=== PATIENT | male | born 1955 | race Caucasian/White ===

== ENCOUNTER 2019-02-26 05:31 | Day surgery (SDC) | payer BC, OTHER ==
[~2019-02-26] VITALS: Ht 170.2 cm; Wt 67.1 kg
[~2019-02-26 05:31] MED LIST: ACCUNEB SO1.25 MG/1 INH; ARNUITY ELLIP100 MCG INH; CALCIUM 500 +1 EAC5 PO; CRESTOR10 MG PO; FLOMAX0.4 MG PO; PROTONIX40 M1 PO; QUINAPRIL HCL40 MG PO
[2019-02-26 08:18] VITALS: BP 139/75
[2019-02-26] MEDS ORDERED: PROMS25 WY RECTAL (15:59)
[2019-02-26] MEDS ORDERED: NORCO 7.5-3251 EACH PO (16:00)
[2019-02-26] MEDS ORDERED: ONDANSETRON HCL4 M1 IV PUSH (16:01)
[2019-02-26] MEDS ORDERED: TUMS PO (16:01)
[2019-02-26] MEDS ORDERED: CALCITRIOL0.25 MCG PO (16:02)
[2019-02-26 16:30] LABS: ALBUMIN 3.7 g/dL (3.4-5.0); MAGNESIUM 1.7 mg/dL (1.8-2.4)
[2019-02-26 17:20] VITALS: BP 154/81
--- NOTE | 2019-02-26 17:56 | NUR ---
PT ARRIVED TO ROOM FROM PACU IN STABLE CONDITION AT 17:11. ASSESSMENT COMPLETED. PT DROWSY, BUT AROUSABLE. A&O,X4. C/O NECK AND THROAT PAIN S/P PARATHYROIDECTOMY, PAIN MEDS GIVEN ORDERED. NECK INCISION WITH STERISTRIPS AND TEGADERM, SMALL AMOUNT OF SEROUSANGIOUS DRAINAGE NOTED. MONA DRAIN IN PLACE. ROOM AIR. SKIN INTACT. NO EDEMA. PT WALKED TO THE BATHROOM AND VOIDED, NO PROBLEMS VOIDING SOME WEAKNESS NOTED. PT ONEIDA AND WEARS HEARING AIDS, IN PLACE. WILL CONTINUE TO MONITOR UNTIL EOS.
[2019-02-26 19:30] VITALS: BP 144/74
[2019-02-26 21:30] VITALS: BP 139/75
[2019-02-26 22:30] VITALS: BP 160/95
[2019-02-26 23:30] VITALS: BP 131/69
[2019-02-27 03:50] VITALS: BP 125/69
--- NOTE | 2019-02-27 04:10 | NUR ---
PATIENT IS ALERT AND ORIENTED. PATIENT IS UP AD STEVE. PATIENT HAS BILATERAL HEARING AIDS. PATIENT HAS SCDS. PATIENTS LBM WAS THE 25TH. PATIENTS CALCIUM HAS BEEN STABLE. POST OP VITALS STABLE. NO PAIN. PATIENTS MONA DRAIN IS INTACT. PENDING DISCHARGE TODAY. PATIENT IS RESTING COMFORTABLY IN BED. WCM. PATIENT IS PROGRESSING TO GOALS.
[2019-02-27 07:30] VITALS: BP 137/69
[2019-02-27 11:02] VITALS: BP 131/69
--- NOTE | 2019-02-27 12:32 | NUR ---
ASSUMED CARE OF PT AT 0700. ASSESSMENT COMPLETED. A&O,X4. DENIES PAIN, DOES NOT REQUEST ANY PAIN MEDS. PT TOOK AM MEDS FROM HOME. NO CALCIUM TO BE GIVEN DUE TO ELEVATED CALCIUM LEVELS. INCISION WITH STERI STRIPS INTACT, NO NEW SEROUSANGIOUS DRAINAGE. MONA DRAIN REMOVED, 10 ML OUTPUT NOTED. GAUZE AND TEGADERM DRESSING C/D/I. PT TO FOLLOW UP WITH DR. GONG FOR CA LEVELS TO BE MONITORED. NEW DISCHARGE ORDERS. SCRIPTS GIVEN TO SISTER IN POSTOP. IV REMOVED, NO ACTIVE BLEEDING. PT DRESSED IN PERSONAL CLOTHES, BELONGINGS AND HOME MEDS SENT WITH PT. PT LEFT IN STABLE CONDITION VIA WHEELCHAIR AT 12:30.
--- NOTE | 2019-03-02 15:06 | PATH ---
[facility] [place] [address] PATHOLOGY RPT PROCEDURE Name: BRIDGER REYNAGA Room #: DEP [facility]..#: [id number] ������������������ Admission: 02/26/19 ������������������ Date of : 59 Discharge: 02/27/19 Report #: [id number] Path Case #: [id number] L[facility] Accession Number: [id number] . 01 Material submitted: . PART A: parathyroid gland - LEFT INFERIOR PARATHYROID RULE OUT PARATHYROID - FS. Modifiers: left, inferior PART B: parathyroid gland - LEFT SUPERIOR PARATHYROID RULE OUT PARATHYROID - FS. Modifiers: left, superior PART C: parathyroid gland - LEFT INFERIOR PARATHYROID #2 RULE OUT PARATHYROID - FS. Modifiers: left, inferior, 2 PART D: parathyroid gland - RIGHT SUPERIOR PARATHYROID RULE OUT PARATHYROID - FS. Modifiers: right, superior PART E: parathyroid gland - LEVEL 6 DISSECTION PARATHYROID . 01 Clinician provided ICD-10: n . 01 Clinical history: . Hyperparathyroidism. . 02 Frozen section diagnosis: . FROZEN SECTION GROSS DESCRIPTION: . A. Received fresh, labeled, "Bridger Reynaga - Left inferior parathyroid rule out parathyroid", is a johnson piece of tissue measuring 0.5 x 0.4 x 0.3 cm. It is sectioned, inked, frozen and submitted in cassette A1. . B. Received fresh, labeled, "Bridger Reynaga - Left superior parathyroid, rule out parathyroid", is a johnson piece of tissue measuring 0.4 x 0.3 x 0.2 cm. It is frozen and submitted in cassette B1. . C. Received fresh, labeled, "Bridger Reynaga - Left inferior parathyroid, rule out parathyroid #2", are two tiny fragments of tissue, one measuring 0.3 and one measuring 0.2 cm. All frozen and submitted in cassette C1. . D. Received fresh, labeled, "Bridger Reynaga - Right superior parathyroid, rule out parathyroid" are two tiny fragments of johnson tissue, one measuring 0.1 cm and the other measuring 0.3 cm. They are both frozen and submitted in cassette D1. (SHA:mm; 02/26/2019) . . INTRAOPERATIVE CONSULTATION WITH FROZEN SECTION: (Dr. Amador Cunningham) . FSA1. Thyroid, "left inferior parathyroid rule out parathyroid": - Thyroid tissue present. . [address] [address] PATHOLOGY RPT PROCEDURE Name: BRIDGER REYNAGA Room #: DEP [facility].#: [id number] ������������������ Admission: 02/26/19 ������������������ Date of : 59 Discharge: 02/27/19 Report #: [id number] Path Case #: [id number] FSB1. Parathyroid, "left superior parathyroid, rule out parathyroid": - Cellular parathyroid tissue present. . FSC1. Left inferior parathyroid, rule out parathyroid #2: - Thyroid tissue present. . FSD1. Parathyroid, "right superior parathyroid": - Parathyroid tissue present. . These findings were discussed with Dr. Desir and a written report was placed in the patient's chart. (SHA:mm; 02/26/2019) . . Frozen section performed at [facility], [address] [place] [address] , [place] [address]. ZSA/QLM . 02 Diagnosis: A. Tissue designated as "left inferior parathyroid rule out parathyroid, excision": - Thyroid parenchyma with moderate chronic lymphocytic thyroiditis. . B. Parathyroid, left superior parathyroid rule out parathyroid, excision: - Markedly hypercellular parathyroid tissue present. . C. Tissue designated as "left inferior parathyroid #2, rule out parathyroid, excision": - Thyroid parenchyma with moderate chronic lymphocytic thyroiditis. . D. Parathyroid, right superior parathyroid rule out parathyroid, excision: - Markedly hypercellular parathyroid tissue present. . E. Lymph nodes (5), level 6 dissection parathyroid, excision: - Reactive minute lymph nodes. - Fibroadipose tissue with reactive changes. - No parathyroid tissue present. . (IUV:detective investigator; 03/01/2019) MBR/03/01/2019 . 02 Electronically signed: . Gladys Avila MD, Pathologist NPI- [id number] . [address] [address] PATHOLOGY RPT PROCEDURE Name: BRIDGER REYNAGA Room #: DEP [facility] Yessi#: [id number] ������������������ Admission: 02/26/19 ������������������ Date of : 59 Discharge: 02/27/19 Report #: [id number] Path Case #: [id number] Gross description: . A. Specimen is received fresh labelled "Ronnell, Bridger and left inferior parathyroid" is a johnson piece of tissue measuring 0.5 x 0.4 x 0.3 cm. The frozen section remnant is submitted in entirety for permanent sections in A1. . B. Specimen B is received fresh labelled "Ronnell, Bridger and left superior parathyroid rule out parathyroid" is a johnson peice of tissue measuring 0.4 x 0.3 x 0.2 cm. The frozen section remnant is submitted in entirety for permanent sections in B1. . C. Specimen C is received fresh labelled "Ronnell, Bridger and left inferior parathyroid, rule out parathyroid #2" are two tiny fragments measuring 0.3 and 0.2 cm. The frozen section remnant is submitted in entirety for permanent sections in C1. . D. Specimen D is received fresh labelled "Ronnell, Bridger and right superior parathyroid rule out parathyroid" are two tiny fragments of tissue measuring 0.1 and 0.2 cm. The frozen section remnant is submitted in entirety for permanent sections in D1. . E. Received in formalin labeled "Bridger Reynaga, level six dissection" is a 4.6 x 2.5 x 0.4 cm aggregate of yellow-johnson lobulated fibroadipose tissue. The specimen is palpated and no lymph nodes are grossly identified. The fibroadipose tissue is submitted entirely in cassettes E1-E2. ([facility]; 02/26/2019) SYC/SYC . 02 Pathologist provided ICD-10: E06.3, E21.0, R59.9 . 02 CPT . 233829, 102371, 768940, 360297, 675743, 512054, 226938, 868745, 081612 Specimen Comment: A courtesy copy of this report has been sent to Specimen Comment: [phone]. Specimen Comment: Report sent to Performed at: [address], [place], [place] [id number] MD Isaiah Telles MD Phone: [phone] Performed at: [address] [id number] MD Gladys Avila MD Phone: [phone]
--- NOTE | 2019-03-02 19:48 | HC ---
[place] [address] CONSULTATION Name: ROSA DIAZ Room #: DEP [facility] Yessi#: [id number] Admission: 02/26/19 ������������������ Attend Phys: Anjel Desir MD Discharge: 02/27/19 ������������������ Date of : 59 Report #: [id number] THIS REPORT FOR: //name// CC: [facility] physician/PCP Anjel Desir DATE OF SERVICE: 02/27/2019 REASON FOR CONSULTATION: Hypercalcemia, post-thyroidectomy. HISTORY OF PRESENT ILLNESS: A 63-year-old with past medical history of hyperparathyroidism, discovered during workup for hypercalcemia. He is known to have recurrent stones. He is known to have hypertension and hyperlipidemia, is maintained on Crestor and quinapril. He has left-sided partial nephrectomy for renal cell carcinoma. Localization of the ultrasound with sestamibi did not reveal any parathyroid adenomas. Decision was made to proceed with parathyroidectomy. PTH is down from 93.8-6.1. Calcium level is maintained at 10.2. I am being consulted to manage his calcium and magnesium issues. MEDICATIONS: 1. Quinapril. 2. Crestor. 3. Albuterol. 4. Hydrocodone. 5. Flomax. PAST MEDICAL HISTORY: 1. Recurrent kidney stones. 2. Hypertension. 3. Hyperlipidemia. 4. Hyperparathyroidism. 5. Renal cell carcinoma. SOCIAL HISTORY: He denies drug or alcohol abuse. FAMILY HISTORY: He denies hypercalcemia or stones issues or parathyroid issues. REVIEW OF SYSTEMS: GENERAL: No fever or chills. CARDIOVASCULAR: No chest pain or palpitation. PULMONARY: No cough or hemoptysis. GASTROINTESTINAL: No nausea or vomiting. GENITOURINARY: No frequency, no urgency. SKIN AND MUSCULOSKELETAL: As per the history of present illness. Minor discomfort at the incision site. [facility] [address] [place] [address] CONSULTATION Name: ROSA DIAZ Room #: DEP [facility] Regina.#: [id number] Admission: 02/26/19 ������������������ Attend Phys: Anjel Desir MD Discharge: 02/27/19 ������������������ Date of : 59 Report #: [id number] PHYSICAL EXAMINATION: GENERAL: Alert, oriented, in no apparent distress. VITAL SIGNS: Temperature 36.7, pulse rate 57, respiratory rate 16, blood pressure is 125/69. HEAD AND NECK: No jugular venous distention. Incision, with drains in place. CARDIOVASCULAR: No rub detected. CHEST: Clear. ABDOMEN: Soft, nontender. LOWER EXTREMITIES: No edema. LABORATORY DATA: Laboratory values reviewed. Calcium is 10.2. PTH is down to 6.1, magnesium is 1.7. ASSESSMENT, IMPRESSION AND PLAN: 1. Post-parathyroidectomy. 2. Known recurrent nephrolithiasis. 3. Known renal cell carcinoma. 4. As for now, we will keep off the calcium and magnesium supplement. We will keep off vitamin D. I provided the patient with my clinic phone number and we will check labs on him within the next week or so. He is okay to go home. ��������������������������������������������� <ELECTRONICALLY SIGNED> ���������������������������������������� By: Octavio Umaña MD ��������������������������������������������� 03/02/19 1948 0949 0015 Octavio Umaña MD /nt
--- NOTE | 2019-03-05 16:04 | O ---
[facility] [place] [address] OPERATIVE REPORT Name: ROSA DIAZ Room #: DEP [facility] M.R.#: [id number] Admission: 02/26/19 ������������������ Attend Phys: Anjel Desir MD Discharge: 02/27/19 ������������������ Date of : 59 Report #: [id number] THIS REPORT FOR: //name// CC: [facility] physician/PCP Gabriel Desir DATE OF SERVICE: 02/26/2019 SURGEON: Anjel Desir MD PREOPERATIVE DIAGNOSES: 1. Primary hyperparathyroidism. 2. Hypercalcemia. 3. History of renal cell carcinoma. 4. Chronic hoarseness. 5. History of renal cell carcinoma, status post left nephrectomy. POSTOPERATIVE DIAGNOSES: 1. Primary hyperparathyroidism. 2. Hypercalcemia. 3. History of renal cell carcinoma. 4. Chronic hoarseness. 5. History of renal cell carcinoma, status post left nephrectomy. OPERATION PERFORMED: 1. Parathyroidectomy subtotal. 2. Parathyroid autotransplantation right sternocleidomastoid muscle. INDICATIONS: The patient is a 63-year-old male presenting on referral from his wound care center consultant, Dr. Medina for consideration of surgical intervention on suspected primary hyperparathyroid disease. The patient has been followed with an elevated PTH in the high 90s range with a calciums in the 11 range. Examination as well as localizing studies including ultrasound and sestamibi scan did not reveal locality of a parathyroid adenoma. Recommendations were made for exploration and parathyroidectomy. DESCRIPTION OF PROCEDURE: The patient was brought to the operating room and placed supine on the operating table. After adequate general anesthesia was achieved via endotracheal intubation with a nerve integrity monitor endotracheal tube, a shoulder roll was placed and neck was extended. Planned incision was marked out in a relaxed skin tension line above the manubrium and injected with 1% Xylocaine with 1:100,000 epinephrine. As a separate part of the procedure, the needle electrodes were attached to the nerve and integrity monitor. Ground electrodes were put in the soft tissue overlying the sternum and contralateral shoulder. Electrode resistance and impedance was measured and found to be acceptable. Threshold and stimulus [facility] [address] [place] [address] OPERATIVE REPORT Name: JOEROSA Room #: DEP [facility] M.R.#: [id number] Admission: 02/26/19 ������������������ Attend Phys: Anjel Desir MD Discharge: 02/27/19 ������������������ Date of : 59 Report #: [id number] intensity parameters were set and the patient was monitored for the entirety of the case of approximately 2.5 to 3 hours. After prepping and draping, the incision was made in the skin and subcutaneous tissue and platysma. Subplatysmal flaps were elevated superiorly and inferiorly and held in place with Gelpi forceps. Dissection was made in the midline over the strap muscles. These were divided down to the underlying thyroid and retracted laterally. Procedure began with exploration on the patient's left side. Immediately upon retracting the strap muscle and beginning dissection, a large mass measuring almost 2 cm in size, came into view along the inferior thyroid artery. This did have the appearance of a large parathyroid adenoma and this was carefully dissected, afferent and efferent vessels clipped between Ligaclips and divided. This was delivered off the field as specimen to pathology. Dissection then continued for exploration. The thyroid gland was dissected. The middle thyroid vein was taken down between Hemoclips and the gland was rolled up on to the trachea dissecting in the tracheoesophageal groove until the recurrent nerve was identified. This was tracked superiorly to the cricothyroid joint. A probe stimuli confirmed. This was then protected. Attached to the thyroid superiorly, there was another parathyroid gland that appeared just slightly larger than normal. By this time, the pathologist had returned with frozen section stating that the mass returned was consistent with thyroid and not parathyroid. Also at this time of the initial iPTH came back at a little over 100, slightly higher than his preoperative iPTH of 91. For that reason, dissection then continued to the opposite right side beginning inferiorly along the inferior thyroid artery and dissecting superiorly, the superior parathyroid was found attached to the capsule was dissected. It appeared normal in size. An extensive evaluation was done along the tracheoesophageal groove. The recurrent nerve was found and protected, but no obvious adenoma was found. The carotid sheath was then divided and this was examined, in addition retroesophageal and post-cricoid was examined again with no obvious adenoma. Dissection continued along the carotid artery inferiorly down into the upper mediastinum and again no obvious parathyroid. A gamma probe was utilized extensively trying to identify. At this point, it was decided to be proceed with removal of the parathyroids that had been identified beginning on the left side. The superior parathyroid was harvested and confirmed with frozen section as parathyroid, this was slightly larger than normal. A level 6 neck dissection was then done beginning on the left side along the nerve and trying to dissect along the inferior thyroid artery to protect it. The lymph node bearing tissue in this region was removed down to the upper mediastinum and thymus. Again, no obvious parathyroid adenoma was found were confirmed with probe stimuli. Similarly on the right side, this area was dissected. The superior parathyroid on this side was harvested and confirmed with frozen section of only small portion. The remainder was kept insulin in anticipation of autotransplantation. Dissection began with level 6 dissection on this side beginning superior to inferior. This tissue was taken down to the upper mediastinum and thymus as well, again the inferior thyroid artery and vein were preserved. Again, no obvious parathyroid adenoma was found. By then a second iPTH had been returned [facility] [address] [place] [address] OPERATIVE REPORT Name: ROSA DIAZ Room #: DEP [facility].#: [id number] Admission: 02/26/19 ������������������ Attend Phys: Anjel Desir MD Discharge: 02/27/19 ������������������ Date of : 59 Report #: [id number] 18.3 showing that this was adequately removed. My suspicion remains at the original mass that had been removed was parathyroid as it did high enhance with the gamma probe. I asked the pathologist to relook at this, but this had been already fixed. As the iPTH had responded appropriately, the dissection was terminated. The wounds were irrigated, hemostasis assured with clip ligature and bipolar cautery. A 10-Afghan Mitchell drain was placed through a separate stab incision, curled into the wound and connected to bulb suction. Powdered Ivone was placed opposite each cricothyroid joint. Both nerves were stimulated and found to be intact. The strap muscles were closed in the midline with interrupted 3-0 Vicryl. A pocket was then created in the right sternocleidomastoid muscle and the superior parathyroid on the right was minced and then placed into this pocket in a parathyroid autotransplantation. This was marked with 3 Ligaclips for future reference. The platysma was then closed with interrupted 3-0 Vicryl and 4-0 Vicryl deep dermal sutures were placed followed by running a 5-0 subcuticular Prolene. Mastisol and Steri-Strips were applied followed by an Op-Site. The drain was sutured in place with 2-0 silk and connected to bulb suction. The patient was then returned to anesthesia, awake without difficulty, returned to recovery in good condition. Sponge and needle counts were correct. There were no complications. Blood loss was about 20 mL. The patient will be watched overnight. He has been counseled preoperatively that this may require several days in the hospital depending on his calcium needs. ��������������������������������������������� <ELECTRONICALLY SIGNED> ���������������������������������������� By: Anjel Desir MD ��������������������������������������������� 03/05/19 1604 [id number] Anjel Desir MD /nt
== END 2019-02-27 12:40 | disposition home or self-care (01) ==
LOC: OR 05:31 → TBA 05:31 → EDSTATUS 09:06 → NUC 09:19 → EDSTATUS 09:26 → OR 09:36 → NUC 16:42 → 4E 17:16 → OR 02-27 12:40
PROVIDERS: Otolaryngology Plastic Surgery within the Head & Neck
DX: E21.0 Primary hyperparathyroidism (principal); E06.3 Autoimmune thyroiditis; R49.0 Dysphonia; Z90.5 Acquired absence of kidney; Z85.528 Personal history of other malignant neoplasm of kidney; Z79.899 Other long term (current) drug therapy; I10 Essential (primary) hypertension; E78.5 Hyperlipidemia, unspecified; J45.909 Unspecified asthma, uncomplicated; Z87.891 Personal history of nicotine dependence; K21.9 Gastro-esophageal reflux disease without esophagitis; Z98.890 Other specified postprocedural states; Z87.442 Personal history of urinary calculi
CPT/HCPCS: 10783; 50010; 50101; 50331; 50386; 50417; 52190; 52220; 52287; 56524; 56526; 56528; 56760; 57006; 62110; 62900; 65131; 65134; 70005